=== PATIENT | female | born 1960 | race Caucasian/White ===

== ENCOUNTER 2022-11-14 17:41 | Inpatient (IN) | payer OTHER ==
[~2022-11-14] VITALS: Ht 157.5 cm; Wt 69.3 kg
[2022-11-14] MEDS ORDERED: MIRT-89 PO (18:05)
[2022-11-14] MEDS ORDERED: CLOP75TA60 PO (18:05)
[2022-11-14] MEDS ORDERED: ATOR20TA86 PO (18:05)
[2022-11-14] MEDS ORDERED: HYDR-4808 PO (18:05)
[2022-11-14] MEDS ORDERED: SODIUM CHLORIDE 0.9% 100 ML ONE (18:13)
[2022-11-14] MEDS ORDERED: IOHEXOL 350 MG/ML 100 ML VIAL ONE (18:13)
[2022-11-14 18:19] LABS: BASOPHILS % (AUTO) 0.8 % (0.0-2.0); EOSINOPHILS % (AUTO) 1.2 % (1.0-6.0); HEMATOCRIT 42.5 % (36-46); HEMOGLOBIN 13.9 g/dL (12.0-16.0); LYMPHOCYTES # (AUTO) 2.6 K/uL (1.0-4.8); LYMPHOCYTES % (AUTO) 35.3 % (22.0-44.0); MEAN CORPUSCULAR HGB CONC 32.6 G/dL (31.0-37.0); MEAN CORPUSCULAR VOLUME 89 fL (80-100); MONOCYTES # (AUTO) 0.5 K/uL (0.1-1.0); MONOCYTES % (AUTO) 6.5 % (2.0-9.0); NEUTROPHILS # (AUTO) 4.1 K/uL (1.8-7.7); NEUTROPHILS % (AUTO) 56.2 % (40.0-70.0); PLATELET COUNT (AUTO) 222 K/uL (150-450); RED BLOOD CELL COUNT(AUTO) 4.79 MIL/uL (4.00-5.20); RED CELL DISTRIBUTION WIDTH 13.5 % (11.5-14.5)
[2022-11-14 18:28] LABS: ANION GAP 7 mmol/L (8-16); CARBON DIOXIDE 28 mmol/L (22-29); CHLORIDE 105 mmol/L (98-107); CREATININE 0.57 mg/dL (0.60-1.30); GLOMERULAR FILTR. RATE CALC > 60 mL/min (>60); GLUCOSE,RANDOM 91 mg/dL (70-110); POTASSIUM 3.8 mmol/L (3.5-5.1); SODIUM SERUM 140 mmol/L (136-145); UREA NITROGEN, BLOOD 15 mg/dL (7-18)
[2022-11-14 18:32] LABS: PROTHROMBIN TIME 10.8 SEC (9.4-11.6)
[2022-11-14 18:35] LABS: ALANINE AMINOTRANSFERASE 24 U/L (12-78); ALBUMIN 3.4 g/dL (3.4-5.0); ALKALINE PHOSPHATASE 80 U/L (46-116); ASPARTATE AMINOTRANSFERASE 18 U/L (15-37); BILIRUBIN,TOTAL 0.3 mg/dL (0.1-1.0); TOTAL PROTEIN, SERUM 7.6 g/dL (6.4-8.2)
[2022-11-14 18:37] LABS: B-TYPE NATRIURETIC PEPTIDE 25 pg/mL (0-100)
[2022-11-14] MEDS ORDERED: WATER FOR INJECTION STERILE IV ONE ×2 (18:40)
[2022-11-14] MEDS ORDERED: ALTEPLASE IV ONE ×2 (18:40)
[2022-11-14] MEDS ORDERED: ALTEPLASE PER STROKE PROTOCOL CLINICAL ONE (18:45)
[2022-11-14 19:45] LABS: COVID AG,FIA SOURCE NASOPHARYNGEAL
[2022-11-14] MEDS ORDERED: ACETAMINOPHEN 325 MG TABLET PO PRN (20:30)
[2022-11-14] MEDS ORDERED: HALOPERIDOL LACTATE 5 MG/ML VIAL IVP ONE (20:30)
[2022-11-14] MEDS ORDERED: ONDANSETRON HCL 4 MG/2 ML VIAL IVP PRN (20:30)
[2022-11-14] MEDS: DOCUSATE SODIUM 100 MG CAPSULE PO SCH (20:45)
[2022-11-14 20:52] LABS: CHOL/HDL RATIO 2.3 (3.9-5.7); CHOLESTEROL 134 mg/dL (131-200); HDL CHOLESTEROL 58 mg/dL (40-60); LDL CHOL (CALC.) 51 mg/dL (0-130); TRIGLYCERIDES 123 mg/dL (15-150)
[2022-11-14] MEDS: FAMOTIDINE 20 MG TABLET PO SCH (20:59)
[2022-11-14 21:02] LABS: HEMOGLOBIN A1C 5.8 % (3.8-5.6)
[2022-11-14 23:19] LABS: HEMATOCRIT 41.9 % (36-46); HEMOGLOBIN 13.7 g/dL (12.0-16.0)
[2022-11-15] VITALS (7 sets, daily range): BP systolic 104–134; BP diastolic 62–72
[2022-11-15] MEDS: PROMETHAZINE HCL 25 MG RECTAL SUPPOSITORY PR PRN ×3 (03:02→16:39)
[2022-11-15] MEDS: DOCUSATE SODIUM 100 MG CAPSULE PO SCH ×2 (08:05→20:38)
[2022-11-15] MEDS: FAMOTIDINE 20 MG TABLET PO SCH ×2 (08:06→20:38)
[2022-11-15 09:13] LABS: BASOPHILS % (AUTO) 0.7 % (0.0-2.0); EOSINOPHILS % (AUTO) 1.6 % (1.0-6.0); HEMATOCRIT 41.8 % (36-46); HEMOGLOBIN 13.6 g/dL (12.0-16.0); LYMPHOCYTES # (AUTO) 1.7 K/uL (1.0-4.8); LYMPHOCYTES % (AUTO) 32.3 % (22.0-44.0); MEAN CORPUSCULAR HEMOGLOBIN 28.8 pg (26.0-34.0); MEAN CORPUSCULAR HGB CONC 32.6 G/dL (31.0-37.0); MEAN CORPUSCULAR VOLUME 88 fL (80-100); MONOCYTES # (AUTO) 0.3 K/uL (0.1-1.0); MONOCYTES % (AUTO) 6.1 % (2.0-9.0); NEUTROPHILS # (AUTO) 3.1 K/uL (1.8-7.7); NEUTROPHILS % (AUTO) 59.3 % (40.0-70.0); PLATELET COUNT (AUTO) 182 K/uL (150-450); RED BLOOD CELL COUNT(AUTO) 4.73 MIL/uL (4.00-5.20); RED CELL DISTRIBUTION WIDTH 13.5 % (11.5-14.5)
[2022-11-15 09:22] LABS: ANION GAP 8 mmol/L (8-16); CALCIUM, TOTAL 8.7 mg/dL (8.8-10.5); CARBON DIOXIDE 28 mmol/L (22-29); CHLORIDE 106 mmol/L (98-107); CREATININE 0.53 mg/dL (0.60-1.30); GLOMERULAR FILTR. RATE CALC > 60 mL/min (>60); GLUCOSE,RANDOM 89 mg/dL (70-110); POTASSIUM 3.8 mmol/L (3.5-5.1); SODIUM SERUM 142 mmol/L (136-145); UREA NITROGEN, BLOOD 10 mg/dL (7-18)
[2022-11-15] MEDS: MORPHINE SULFATE 2 MG/ML SYRINGE IVP PRN ×3 (09:58→21:07)
[2022-11-15] MEDS ORDERED: SODIUM CHLORIDE 0.9% 1,000 ML IV ONE (10:00)
[2022-11-15 11:54] LABS: HEMATOCRIT 42.6 % (36-46); HEMOGLOBIN 13.8 g/dL (12.0-16.0)
[2022-11-16] VITALS (8 sets, daily range): BP systolic 100–112; BP diastolic 58–76
[2022-11-16] MEDS: MORPHINE SULFATE 2 MG/ML SYRINGE IVP PRN ×4 (04:31→19:55)
[2022-11-16] MEDS: PROMETHAZINE HCL 25 MG RECTAL SUPPOSITORY PR PRN (07:42)
[2022-11-16] MEDS: FAMOTIDINE 20 MG TABLET PO SCH ×2 (08:16→21:07)
[2022-11-16] MEDS: DOCUSATE SODIUM 100 MG CAPSULE PO SCH ×2 (08:16→21:07)
[2022-11-16] MEDS: HEPARIN SODIUM,PORCINE 5,000 UNITS/ML VIAL SQ SCH ×2 (09:07→15:11)
[2022-11-16] MEDS: ASPIRIN 81 MG CHEWABLE TABLET PO SCH (09:07)
[2022-11-16] MEDS: ATORVASTATIN CALCIUM 40 MG TABLET PO SCH (09:07)
[2022-11-16] MEDS: HydrOXYzine PAMOATE 25 MG CAPSULE PO SCH ×2 (10:42→21:07)
[2022-11-16] MEDS: MAGNESIUM OXIDE 400 MG TABLET PO PRN ×3 (10:42→19:55)
[2022-11-16] MEDS ORDERED: MAGNESIUM SULFATE 2 GM/WATER 50 ML IV PRN (10:45)
[2022-11-16] MEDS ORDERED: MAGNESIUM SULFATE 4 GM/WATER 100 ML IV PRN (10:45)
[2022-11-16] MEDS: PROMETHAZINE HCL 25 MG TABLET PO PRN ×2 (14:46→21:07)
[2022-11-16] MEDS ORDERED: DENTURE ADHESIVE 68 GM CREAM DT PRN (15:00)
[2022-11-16] MEDS: MIRTAZAPINE 15 MG TABLET PO SCH (21:07)
[2022-11-17] VITALS (7 sets, daily range): BP systolic 97–123; BP diastolic 61–81
[2022-11-17] MEDS: HEPARIN SODIUM,PORCINE 5,000 UNITS/ML VIAL SQ SCH ×4 (00:18→23:32)
[2022-11-17] MEDS: MORPHINE SULFATE 2 MG/ML SYRINGE IVP PRN (05:35)
[2022-11-17] MEDS: PROMETHAZINE HCL 25 MG TABLET PO PRN ×3 (05:36→20:44)
[2022-11-17] MEDS: MAGNESIUM OXIDE 400 MG TABLET PO PRN ×3 (06:59→18:28)
[2022-11-17] MEDS: HydrOXYzine PAMOATE 25 MG CAPSULE PO SCH ×2 (08:53→20:42)
[2022-11-17] MEDS: DOCUSATE SODIUM 100 MG CAPSULE PO SCH ×2 (08:53→20:42)
[2022-11-17] MEDS: FAMOTIDINE 20 MG TABLET PO SCH ×2 (08:53→20:42)
[2022-11-17] MEDS: ASPIRIN 81 MG CHEWABLE TABLET PO SCH (08:53)
[2022-11-17] MEDS: ATORVASTATIN CALCIUM 40 MG TABLET PO SCH (08:53)
[2022-11-17] MEDS ORDERED: HYDROCORTISONE 0.5% 30 GM CREAM TP PRN (10:30)
[2022-11-17] MEDS ORDERED: SUMAtriptan SUCCINATE 100 MG TABLET PO PRN (16:45)
[2022-11-17] MEDS: MIRTAZAPINE 15 MG TABLET PO SCH (20:42)
[2022-11-18] MEDS: MAGNESIUM OXIDE 400 MG TABLET PO PRN (01:22)
[2022-11-18 04:50] VITALS: BP 110/71
[2022-11-18 07:42] VITALS: BP 115/73
[2022-11-18] MEDS: CLOPIDOGREL BISULFATE 75 MG TABLET PO SCH (08:54)
[2022-11-18] MEDS: DOCUSATE SODIUM 100 MG CAPSULE PO SCH ×2 (08:54→20:17)
[2022-11-18] MEDS: ASPIRIN 81 MG CHEWABLE TABLET PO SCH (08:55)
[2022-11-18] MEDS: HEPARIN SODIUM,PORCINE 5,000 UNITS/ML VIAL SQ SCH ×3 (08:55→23:17)
[2022-11-18] MEDS: HydrOXYzine PAMOATE 25 MG CAPSULE PO SCH ×2 (08:55→20:15)
[2022-11-18] MEDS: FAMOTIDINE 20 MG TABLET PO SCH ×2 (08:56→20:15)
[2022-11-18] MEDS: ATORVASTATIN CALCIUM 40 MG TABLET PO SCH (08:56)
[2022-11-18] MEDS: PROMETHAZINE HCL 25 MG TABLET PO PRN (09:56)
[2022-11-18 11:13] VITALS: BP 98/56
[2022-11-18 15:33] VITALS: BP 113/73
[2022-11-18] MEDS: ALPRAZolam 0.5 MG TABLET PO SCH (20:15)
[2022-11-18] MEDS: MIRTAZAPINE 15 MG TABLET PO SCH (20:16)
[2022-11-18 20:51] VITALS: BP 118/77
[2022-11-19 03:01] VITALS: BP 96/64
[2022-11-19 04:05] VITALS: BP 96/64
[2022-11-19 07:44] VITALS: BP 98/66
[2022-11-19] MEDS: FAMOTIDINE 20 MG TABLET PO SCH (09:15)
[2022-11-19] MEDS: HEPARIN SODIUM,PORCINE 5,000 UNITS/ML VIAL SQ SCH ×2 (09:16→15:47)
[2022-11-19] MEDS: ASPIRIN 81 MG CHEWABLE TABLET PO SCH (09:16)
[2022-11-19] MEDS: DOCUSATE SODIUM 100 MG CAPSULE PO SCH (09:16)
[2022-11-19] MEDS: HydrOXYzine PAMOATE 25 MG CAPSULE PO SCH (09:16)
[2022-11-19] MEDS: CLOPIDOGREL BISULFATE 75 MG TABLET PO SCH (09:16)
[2022-11-19] MEDS: ALPRAZolam 0.5 MG TABLET PO SCH (09:16)
[2022-11-19] MEDS: ATORVASTATIN CALCIUM 40 MG TABLET PO SCH (09:17)
[2022-11-19 11:16] VITALS: BP 103/66
[2022-11-19] MEDS: PROMETHAZINE HCL 25 MG TABLET PO PRN (11:33)
[2022-11-19 11:51] VITALS: BP 114/70
[2022-11-19 15:00] VITALS: BP 146/75
[2022-11-19] MEDS ORDERED: TraMADol HCL 50 MG TABLET PO PRN (15:00)
== END 2022-11-19 19:00 | DRG 62 ==
LOC: EMS 17:50 → ICU 11-15 00:34 → 5S 11-16 10:01
PROVIDERS: ADMIT Internal Medicine; ATTEND Internal Medicine
DX: I63.9 Cerebral infarction, unspecified (principal); G81.94 Hemiplegia, unspecified affecting left nondominant side; E78.5 Hyperlipidemia, unspecified; E66.9 Obesity, unspecified; I10 Essential (primary) hypertension; Z20.822 Contact with and (suspected) exposure to COVID-19; E78.00 Pure hypercholesterolemia, unspecified; F41.1 Generalized anxiety disorder; H53.40 Unspecified visual field defects; R29.713 NIHSS score 13; R29.810 Facial weakness; Z79.02 Long term (current) use of antithrombotics/antiplatelets; Z68.27 Body mass index [BMI] 27.0-27.9, adult; Z88.8 Allergy status to other drugs, medicaments and biological substances; Z79.82 Long term (current) use of aspirin; Z86.718 Personal history of other venous thrombosis and embolism; Z88.6 Allergy status to analgesic agent
CPT/HCPCS: 70496; 70498; 71045; 80048; 80053; 80061; 82040; 82948; 83036; 83735; 83880; 84484; 85014; 85018; 85025; 85610; 85730; 86850; 86900; 86901; 87081; 92526; 92610; 93005; 93306; 97112; 97162; 97166; 97530; 97535; 99291; G0378; G0480; J1630; J1644; J2270; J2997; J7030; J7050; Q9967; 36415-L1; 36415-TC; 70450; 70450-TC

== ENCOUNTER 2023-04-07 23:23 | Inpatient (IN) | payer OTHER ==
[~2023-04-07] VITALS: Ht 160 cm; Wt 70.2 kg
[~2023-04-07 23:23] MED LIST: ATOR20TA PO; CLOP75TA60 PO; HYDR-4808 PO; MIRT-89 PO
[2023-04-08 00:34] LABS: BASOPHILS % (AUTO) 0.9 % (0.0-2.0); HEMOGLOBIN 14.9 g/dL (12.0-16.0); LYMPHOCYTES # (AUTO) 2.3 K/uL (1.0-4.8); LYMPHOCYTES % (AUTO) 29.9 % (22.0-44.0); MEAN CORPUSCULAR HGB CONC 33.9 G/dL (31.0-37.0); MEAN CORPUSCULAR VOLUME 85 fL (80-100); MONOCYTES # (AUTO) 0.6 K/uL (0.1-1.0); MONOCYTES % (AUTO) 8.2 % (2.0-9.0); NEUTROPHILS # (AUTO) 4.7 K/uL (1.8-7.7); PLATELET COUNT (AUTO) 255 K/uL (150-450); RED BLOOD CELL COUNT(AUTO) 5.16 MIL/uL (4.00-5.20); RED CELL DISTRIBUTION WIDTH 14.9 % (11.5-14.5)
[2023-04-08 00:37] LABS: ANION GAP 8 mmol/L (8-16); CALCIUM, TOTAL 9.5 mg/dL (8.8-10.5); CARBON DIOXIDE 27 mmol/L (22-29); CHLORIDE 102 mmol/L (98-107); CREATININE 0.67 mg/dL (0.60-1.30); GLOMERULAR FILTR. RATE CALC > 60 mL/min (>60); GLUCOSE,RANDOM 95 mg/dL (70-110); POTASSIUM 3.8 mmol/L (3.5-5.1); SODIUM SERUM 137 mmol/L (136-145)
[2023-04-08 00:43] LABS: ALANINE AMINOTRANSFERASE 17 U/L (12-78); ALBUMIN 3.7 g/dL (3.4-5.0); ALKALINE PHOSPHATASE 76 U/L (46-116); ASPARTATE AMINOTRANSFERASE 13 U/L (15-37); BILIRUBIN,TOTAL 0.5 mg/dL (0.1-1.0); LIPASE 122 U/L (73-393); TOTAL PROTEIN, SERUM 7.8 g/dL (6.4-8.2)
[2023-04-08 00:45] LABS: LACTIC ACID 1.2 mmol/L (0.4-2.0)
[2023-04-08] MEDS ORDERED: LORazepam 2 MG/ML VIAL IM ONE (01:00)
[2023-04-08] MEDS ORDERED: ACETAMINOPHEN 325 MG TABLET PO PRN (01:00)
[2023-04-08 01:52] LABS: COVID AG,FIA SOURCE NASOPHARYNGEAL
[2023-04-08] MEDS ORDERED: DiphenhydrAMINE HCL 50 MG/ML VIAL IM ONE (02:45)
[2023-04-08] MEDS ORDERED: CLOBETASOL 0.05% 15 GM CREAM TP ONE (02:45)
[2023-04-08 03:28] VITALS: BP 117/74
[2023-04-08 08:00] VITALS: BP 110/65
[2023-04-08] MEDS: HEPARIN SODIUM,PORCINE 5,000 UNITS/ML VIAL SQ SCH ×2 (08:00→16:00)
[2023-04-08] MEDS: CLOPIDOGREL BISULFATE 75 MG TABLET PO SCH (08:36)
[2023-04-08] MEDS: ASPIRIN 81 MG CHEWABLE TABLET PO SCH (08:36)
[2023-04-08] MEDS: ATORVASTATIN CALCIUM 20 MG TABLET PO SCH (08:36)
[2023-04-08] MEDS: HydrOXYzine PAMOATE 25 MG CAPSULE PO SCH ×2 (10:19→22:19)
[2023-04-08 12:30] VITALS: BP 114/66
[2023-04-08 16:03] VITALS: BP 118/68
[2023-04-08 19:57] VITALS: BP 110/69
[2023-04-08] MEDS: MIRTAZAPINE 15 MG TABLET PO SCH (22:19)
[2023-04-09 04:38] VITALS: BP 108/67
[2023-04-09] MEDS ORDERED: CLOBETASOL 0.05% 60 GM CREAM TP ONE (05:45)
[2023-04-09] MEDS ORDERED: CLOBETASOL 0.05% 15 GM CREAM TP ONE (05:45)
[2023-04-09 08:00] VITALS: BP 98/59
[2023-04-09] MEDS: HEPARIN SODIUM,PORCINE 5,000 UNITS/ML VIAL SQ SCH ×3 (08:00→16:00)
[2023-04-09] MEDS: ATORVASTATIN CALCIUM 20 MG TABLET PO SCH (09:22)
[2023-04-09] MEDS: HydrOXYzine PAMOATE 25 MG CAPSULE PO SCH ×2 (09:23→21:00)
[2023-04-09] MEDS: ASPIRIN 81 MG CHEWABLE TABLET PO SCH (09:23)
[2023-04-09] MEDS: CLOPIDOGREL BISULFATE 75 MG TABLET PO SCH (09:23)
[2023-04-09 15:06] VITALS: BP 114/69
[2023-04-09] MEDS ORDERED: ACETAMINOPHEN 1000 MG/ISO-OSM 100 ML IV PRN (18:00)
[2023-04-09] MEDS: DEXTROSE 5%-0.45% SODIUM CHL 1,000 ML IV SCH (18:12)
[2023-04-09] MEDS: LORazepam 2 MG/ML VIAL IVP PRN (18:12)
[2023-04-09 19:58] VITALS: BP 110/67
[2023-04-09] MEDS: MIRTAZAPINE 15 MG TABLET PO SCH (21:00)
[2023-04-10] MEDS: HEPARIN SODIUM,PORCINE 5,000 UNITS/ML VIAL SQ SCH ×5 (00:01→23:19)
[2023-04-10] MEDS: LORazepam 2 MG/ML VIAL IVP PRN ×3 (00:04→14:03)
[2023-04-10 03:52] VITALS: BP 109/56
[2023-04-10] MEDS: DEXTROSE 5%-0.45% SODIUM CHL 1,000 ML IV SCH (06:06)
[2023-04-10 08:02] VITALS: BP 100/58
[2023-04-10] MEDS: ASPIRIN 81 MG CHEWABLE TABLET PO SCH (08:55)
[2023-04-10] MEDS: CLOPIDOGREL BISULFATE 75 MG TABLET PO SCH (08:56)
[2023-04-10] MEDS: ATORVASTATIN CALCIUM 20 MG TABLET PO SCH (08:56)
[2023-04-10] MEDS: HydrOXYzine PAMOATE 25 MG CAPSULE PO SCH (08:56)
[2023-04-10] MEDS: DENTURE ADHESIVE 68 GM CREAM DT PRN (16:13)
[2023-04-10 16:39] VITALS: BP 102/69
[2023-04-10 19:55] VITALS: BP 98/60
[2023-04-10] MEDS: MIRTAZAPINE 15 MG TABLET PO SCH (20:06)
[2023-04-10] MEDS: HydrOXYzine PAMOATE 50 MG CAPSULE PO PRN (20:07)
[2023-04-11 04:57] VITALS: BP 104/65
[2023-04-11] MEDS: CLOPIDOGREL BISULFATE 75 MG TABLET PO SCH (08:08)
[2023-04-11] MEDS: ATORVASTATIN CALCIUM 20 MG TABLET PO SCH (08:08)
[2023-04-11] MEDS: HEPARIN SODIUM,PORCINE 5,000 UNITS/ML VIAL SQ SCH ×3 (08:08→23:13)
[2023-04-11] MEDS: ASPIRIN 81 MG CHEWABLE TABLET PO SCH (08:08)
[2023-04-11] MEDS: HydrOXYzine PAMOATE 50 MG CAPSULE PO PRN ×3 (08:19→21:26)
[2023-04-11 08:50] VITALS: BP 95/56
[2023-04-11] MEDS: DiphenhydrAMINE HCL 25 MG CAPSULE PO PRN ×2 (13:02→18:51)
[2023-04-11 13:43] LABS: APPEARANCE,URINE HAZY (CLEAR); BILIRUBIN,URINE NEGATIVE (NEGATIVE); GLUCOSE, URINE (UA) NEGATIVE (NEGATIVE); KETONES,URINE NEGATIVE (NEGATIVE); LEUKOCYTE ESTERASE ,URINE SMALL (NEGATIVE); NITRATE,URINE NEGATIVE (NEGATIVE); OCCULT BLOOD,URINE NEGATIVE (NEGATIVE); PH,URINE 6.5 (5.0-8.0); PROTEIN,URINE NEGATIVE (NEGATIVE); SPECIFIC GRAVITIY, URINE 1.012 (1.003-1.030); UROBILINOGEN,URINE <=1.0 mg/dL (<=1.0)
[2023-04-11 14:12] LABS: BACTERIA,URINE Moderate /HPF (None Seen); RBC,URINE None Seen /HPF (0-2); SQUAMOUS EPITHELIAL CELL,UR Few /LPF (None Seen)
[2023-04-11] MEDS: CLOTRIMAZOLE 1% 15 GM CREAM TP SCH (15:14)
[2023-04-11 16:08] VITALS: BP 126/73
[2023-04-11] MEDS: CEPHALEXIN MONOHYDRATE 500 MG CAPSULE PO SCH ×2 (16:08→20:07)
[2023-04-11] MEDS: DENTURE ADHESIVE 68 GM CREAM DT PRN (18:51)
[2023-04-11 20:04] VITALS: BP 143/78
[2023-04-11] MEDS: MIRTAZAPINE 15 MG TABLET PO SCH (20:07)
[2023-04-12 05:33] VITALS: BP 121/78
[2023-04-12 07:35] VITALS: BP 114/75
[2023-04-12] MEDS: CEPHALEXIN MONOHYDRATE 500 MG CAPSULE PO SCH ×2 (07:53→13:10)
[2023-04-12] MEDS: CLOPIDOGREL BISULFATE 75 MG TABLET PO SCH (07:54)
[2023-04-12] MEDS: HEPARIN SODIUM,PORCINE 5,000 UNITS/ML VIAL SQ SCH ×3 (07:54→23:32)
[2023-04-12] MEDS: ATORVASTATIN CALCIUM 20 MG TABLET PO SCH (07:55)
[2023-04-12] MEDS: ASPIRIN 81 MG CHEWABLE TABLET PO SCH (07:56)
[2023-04-12] MEDS: DENTURE ADHESIVE 68 GM CREAM DT PRN (08:00)
[2023-04-12] MEDS ORDERED: ZOLPIDEM TARTRATE 10 MG TABLET PO PRN (13:00)
[2023-04-12] MEDS: CLOTRIMAZOLE 1% 15 GM CREAM TP SCH (13:11)
[2023-04-12] MEDS: HydrOXYzine PAMOATE 50 MG CAPSULE PO PRN (13:40)
[2023-04-12] MEDS ORDERED: CefTRIAXone 1 GM/DEXTROSE 50 ML IV SCH (14:00)
[2023-04-12] MEDS: PROMETHAZINE HCL 25 MG TABLET PO PRN ×2 (16:50→21:17)
[2023-04-12 16:53] VITALS: BP 104/53
[2023-04-12] MEDS ORDERED: LORazepam 2 MG/ML VIAL IVP ONE (18:00)
[2023-04-12 20:03] VITALS: BP 108/71
[2023-04-12] MEDS: MIRTAZAPINE 15 MG TABLET PO SCH (21:17)
[2023-04-13] MEDS: PROMETHAZINE HCL 25 MG TABLET PO PRN ×4 (03:21→21:20)
[2023-04-13 05:19] VITALS: BP 105/56
[2023-04-13 07:26] VITALS: BP 110/73
[2023-04-13] MEDS: HEPARIN SODIUM,PORCINE 5,000 UNITS/ML VIAL SQ SCH ×3 (08:00→23:31)
[2023-04-13] MEDS: CLOPIDOGREL BISULFATE 75 MG TABLET PO SCH (08:20)
[2023-04-13] MEDS: ASPIRIN 81 MG CHEWABLE TABLET PO SCH (08:20)
[2023-04-13] MEDS: ATORVASTATIN CALCIUM 20 MG TABLET PO SCH (08:20)
[2023-04-13] MEDS: CLOTRIMAZOLE 1% 15 GM CREAM TP SCH (08:21)
[2023-04-13] MEDS: HydrOXYzine PAMOATE 50 MG CAPSULE PO PRN ×3 (09:33→23:27)
[2023-04-13 15:02] VITALS: BP 124/76
[2023-04-13] MEDS: DiphenhydrAMINE HCL 25 MG CAPSULE PO PRN (18:42)
[2023-04-13 19:57] VITALS: BP 108/73
[2023-04-13] MEDS: MIRTAZAPINE 15 MG TABLET PO SCH (21:01)
[2023-04-14 07:00] VITALS: BP 118/62
[2023-04-14] MEDS: HEPARIN SODIUM,PORCINE 5,000 UNITS/ML VIAL SQ SCH (07:50)
[2023-04-14] MEDS: CLOTRIMAZOLE 1% 15 GM CREAM TP SCH (07:51)
[2023-04-14] MEDS: PROMETHAZINE HCL 25 MG TABLET PO PRN (07:52)
[2023-04-14] MEDS: CLOPIDOGREL BISULFATE 75 MG TABLET PO SCH (07:52)
[2023-04-14] MEDS: ATORVASTATIN CALCIUM 20 MG TABLET PO SCH (07:52)
[2023-04-14] MEDS: ASPIRIN 81 MG CHEWABLE TABLET PO SCH (07:52)
[2023-04-14] MEDS: DiphenhydrAMINE HCL 25 MG CAPSULE PO PRN (09:55)
[2023-04-14] MEDS: HydrOXYzine PAMOATE 50 MG CAPSULE PO PRN (09:55)
[2023-04-15] MEDS ORDERED: FLUoxetine HCL 10 MG CAPSULE PO SCH (09:00)
== END 2023-04-14 14:45 | DRG 57 ==
LOC: EMS 23:24 → 6S 04-08 02:00
PROVIDERS: ADMIT Internal Medicine; ATTEND Internal Medicine
DX: G81.94 Hemiplegia, unspecified affecting left nondominant side (principal); Z20.822 Contact with and (suspected) exposure to COVID-19; F41.9 Anxiety disorder, unspecified; R47.1 Dysarthria and anarthria; E78.00 Pure hypercholesterolemia, unspecified; F32.A Depression, unspecified; H53.8 Other visual disturbances; R53.81 Other malaise; I10 Essential (primary) hypertension; L30.9 Dermatitis, unspecified; Z86.73 Personal history of transient ischemic attack (TIA), and cerebral infarction without residual deficits; Z86.718 Personal history of other venous thrombosis and embolism; Z79.02 Long term (current) use of antithrombotics/antiplatelets; Z79.82 Long term (current) use of aspirin; Z86.711 Personal history of pulmonary embolism; Z98.84 Bariatric surgery status; Z88.8 Allergy status to other drugs, medicaments and biological substances; Z79.899 Other long term (current) drug therapy
CPT/HCPCS: 70450; 71045; 80053; 81001; 83605; 83690; 84484; 85025; 87086; 87186; 92610; 93005; 93306; 97112; 97116; 97163; 97166; 97530; 97535; 99291; J0696; J1200; J1644; J2060; 36415-L1; 36415-TC

== ENCOUNTER 2023-06-20 16:09 | Inpatient (IN) | payer OTHER ==
[~2023-06-20] VITALS: Ht 160 cm; Wt 90.9 kg
[2023-06-20 20:32] LABS: BASOPHILS % (AUTO) 0.9 % (0.0-2.0); EOSINOPHILS % (AUTO) 2.4 % (1.0-6.0); HEMATOCRIT 35.5 % (36-46); LYMPHOCYTES # (AUTO) 2.3 K/uL (1.0-4.8); LYMPHOCYTES % (AUTO) 34.2 % (22.0-44.0); MEAN CORPUSCULAR HEMOGLOBIN 23.9 pg (26.0-34.0); MEAN CORPUSCULAR HGB CONC 31.1 G/dL (31.0-37.0); MEAN CORPUSCULAR VOLUME 77 fL (80-100); MONOCYTES # (AUTO) 0.5 K/uL (0.1-1.0); MONOCYTES % (AUTO) 7.5 % (2.0-9.0); NEUTROPHILS # (AUTO) 3.7 K/uL (1.8-7.7); PLATELET COUNT (AUTO) 267 K/uL (150-450); RED BLOOD CELL COUNT(AUTO) 4.62 MIL/uL (4.00-5.20); RED CELL DISTRIBUTION WIDTH 17.6 % (11.5-14.5)
[2023-06-20 20:36] LABS: PROTHROMBIN TIME 10.2 SEC (9.4-11.6)
[2023-06-20 20:39] LABS: ANION GAP 11 mmol/L (8-16); CALCIUM, TOTAL 8.7 mg/dL (8.8-10.5); CARBON DIOXIDE 25 mmol/L (22-29); CHLORIDE 101 mmol/L (98-107); CREATININE 0.61 mg/dL (0.60-1.30); GLOMERULAR FILTR. RATE CALC > 60 mL/min (>60); GLUCOSE,RANDOM 109 mg/dL (70-110); POTASSIUM 4.3 mmol/L (3.5-5.1); SODIUM SERUM 137 mmol/L (136-145)
[2023-06-20 20:47] LABS: LACTIC ACID 1.2 mmol/L (0.4-2.0)
[2023-06-20 20:53] LABS: ALANINE AMINOTRANSFERASE 21 U/L (12-78); ALBUMIN 3.1 g/dL (3.4-5.0); ALKALINE PHOSPHATASE 81 U/L (46-116); ASPARTATE AMINOTRANSFERASE 17 U/L (15-37); BILIRUBIN,TOTAL 0.2 mg/dL (0.1-1.0); LIPASE 46 U/L (16-77); TOTAL PROTEIN, SERUM 7.2 g/dL (6.4-8.2)
[2023-06-20] MEDS ORDERED: BISACODYL 10 MG RECTAL RECTAL SUPPOSITORY PR PRN (22:30)
[2023-06-20] MEDS ORDERED: ACETAMINOPHEN 325 MG TABLET PO PRN (22:30)
[2023-06-20] MEDS ORDERED: ZOLPIDEM TARTRATE 5 MG TABLET PO PRN (22:30)
[2023-06-20] MEDS ORDERED: MAGNESIUM HYDROXIDE SUSPENSION 30 ML UDCUP PO PRN (22:30)
[2023-06-20] MEDS ORDERED: HYDROmorphone HCL 2 MG/ML SYRINGE IVP ONE (23:00)
[2023-06-20] MEDS ORDERED: DiphenhydrAMINE HCL 50 MG/ML VIAL IVP ONE (23:30)
[2023-06-20] MEDS: HEPARIN SODIUM,PORCINE 5,000 UNITS/ML VIAL SQ SCH (23:36)
[2023-06-21] MEDS ORDERED: MICONAZOLE NITRATE 2% 142 GM CREAM [BAZA] TP ONE (01:15)
[2023-06-21] MEDS ORDERED: LORazepam 2 MG TABLET PO ONE (01:15)
[2023-06-21] MEDS ORDERED: MIRTAZAPINE 15 MG TABLET PO ONE (01:15)
[2023-06-21] MEDS ORDERED: MICONAZOLE NITRATE 2% 45 GM VAGINAL CREAM VG ONE (01:30)
[2023-06-21 02:27] LABS: APPEARANCE,URINE CLEAR (CLEAR); BILIRUBIN,URINE NEGATIVE (NEGATIVE); GLUCOSE, URINE (UA) NEGATIVE (NEGATIVE); KETONES,URINE NEGATIVE (NEGATIVE); LEUKOCYTE ESTERASE ,URINE TRACE (NEGATIVE); NITRATE,URINE NEGATIVE (NEGATIVE); OCCULT BLOOD,URINE NEGATIVE (NEGATIVE); PROTEIN,URINE NEGATIVE (NEGATIVE); SPECIFIC GRAVITIY, URINE 1.018 (1.003-1.030); UROBILINOGEN,URINE <=1.0 mg/dL (<=1.0)
[2023-06-21 02:33] LABS: AMORPHOUS SEDIMENT,UR Few /LPF (None Seen); BACTERIA,URINE None Seen /HPF (None Seen); RBC,URINE 0-2 /HPF (0-2); SQUAMOUS EPITHELIAL CELL,UR Few /LPF (None Seen); WBC,URINE 0-2 /HPF (0-5)
[2023-06-21] MEDS: HYDROCODONE/ACETAMINOPHEN 5-325 MG TABLET PO PRN ×2 (03:06→12:04)
[2023-06-21 05:28] VITALS: BP 105/55; PULSE 69; RESP 20; TEMP 97.7
[2023-06-21] MEDS: MORPHINE SULFATE 2 MG/ML SYRINGE IVP PRN ×3 (05:52→21:01)
[2023-06-21 08:00] VITALS: BP 97/56; PULSE 71; RESP 20; TEMP 97.5
[2023-06-21] MEDS: PANTOPRAZOLE SODIUM 40 MG DR TABLET PO SCH (08:36)
[2023-06-21] MEDS: HEPARIN SODIUM,PORCINE 5,000 UNITS/ML VIAL SQ SCH ×3 (08:36→23:45)
[2023-06-21] MEDS: DOCUSATE SODIUM 100 MG CAPSULE PO SCH ×2 (08:36→20:59)
[2023-06-21 19:26] VITALS: BP 116/50; PULSE 80; RESP 18; TEMP 98.6
[2023-06-21] MEDS: MIRTAZAPINE 15 MG TABLET PO SCH (20:59)
[2023-06-21] MEDS: HydrOXYzine PAMOATE 25 MG CAPSULE PO SCH (20:59)
[2023-06-22] MEDS: MORPHINE SULFATE 2 MG/ML SYRINGE IVP PRN ×5 (01:54→23:58)
[2023-06-22] MEDS: HYDROCODONE/ACETAMINOPHEN 5-325 MG TABLET PO PRN (04:26)
[2023-06-22 05:22] VITALS: BP 95/51; PULSE 74; RESP 20; TEMP 98
[2023-06-22 07:18] VITALS: BP 100/50; PULSE 63; RESP 18; TEMP 98.4
[2023-06-22] MEDS: DOCUSATE SODIUM 100 MG CAPSULE PO SCH ×2 (09:00→20:01)
[2023-06-22 09:04] VITALS: BP 105/57; PULSE 69; RESP 20
[2023-06-22] MEDS: PANTOPRAZOLE SODIUM 40 MG DR TABLET PO SCH (09:14)
[2023-06-22] MEDS: HEPARIN SODIUM,PORCINE 5,000 UNITS/ML VIAL SQ SCH ×3 (09:14→23:58)
[2023-06-22] MEDS: ATORVASTATIN CALCIUM 20 MG TABLET PO SCH (09:14)
[2023-06-22] MEDS: HydrOXYzine PAMOATE 25 MG CAPSULE PO SCH ×2 (09:14→20:01)
[2023-06-22] MEDS ORDERED: DENTURE ADHESIVE 68 GM CREAM DT PRN (13:15)
[2023-06-22 15:52] VITALS: BP 106/58; PULSE 80; RESP 18; TEMP 98.9
[2023-06-22] MEDS: MIRTAZAPINE 15 MG TABLET PO SCH (20:01)
[2023-06-22 20:24] VITALS: BP 119/61; PULSE 86; RESP 20; TEMP 98.1
[2023-06-23] MEDS: MORPHINE SULFATE 2 MG/ML SYRINGE IVP PRN ×5 (04:11→21:30)
[2023-06-23 04:24] VITALS: BP 110/58; PULSE 68; RESP 20; TEMP 98.3
[2023-06-23 06:48] LABS: BASOPHILS % (AUTO) 0.9 % (0.0-2.0); EOSINOPHILS % (AUTO) 4.3 % (1.0-6.0); HEMATOCRIT 34.6 % (36-46); HEMOGLOBIN 11.1 g/dL (12.0-16.0); LYMPHOCYTES # (AUTO) 2.3 K/uL (1.0-4.8); LYMPHOCYTES % (AUTO) 35.9 % (22.0-44.0); MEAN CORPUSCULAR HEMOGLOBIN 24.4 pg (26.0-34.0); MEAN CORPUSCULAR HGB CONC 32.2 G/dL (31.0-37.0); MEAN CORPUSCULAR VOLUME 76 fL (80-100); MONOCYTES # (AUTO) 0.5 K/uL (0.1-1.0); MONOCYTES % (AUTO) 8.2 % (2.0-9.0); NEUTROPHILS # (AUTO) 3.2 K/uL (1.8-7.7); NEUTROPHILS % (AUTO) 50.7 % (40.0-70.0); PLATELET COUNT (AUTO) 256 K/uL (150-450); RED BLOOD CELL COUNT(AUTO) 4.56 MIL/uL (4.00-5.20); RED CELL DISTRIBUTION WIDTH 17.9 % (11.5-14.5)
[2023-06-23 07:04] LABS: ANION GAP 7 mmol/L (8-16); CARBON DIOXIDE 27 mmol/L (22-29); CHLORIDE 100 mmol/L (98-107); GLOMERULAR FILTR. RATE CALC > 60 mL/min (>60); GLUCOSE,RANDOM 99 mg/dL (70-110); POTASSIUM 4.2 mmol/L (3.5-5.1); SODIUM SERUM 134 mmol/L (136-145)
[2023-06-23 08:00] VITALS: BP 103/64; PULSE 73; RESP 18; TEMP 98.4
[2023-06-23] MEDS: HydrOXYzine PAMOATE 25 MG CAPSULE PO SCH ×2 (08:30→20:00)
[2023-06-23] MEDS: DOCUSATE SODIUM 100 MG CAPSULE PO SCH ×2 (08:31→20:00)
[2023-06-23] MEDS: HEPARIN SODIUM,PORCINE 5,000 UNITS/ML VIAL SQ SCH ×3 (08:31→23:47)
[2023-06-23] MEDS: ATORVASTATIN CALCIUM 20 MG TABLET PO SCH (08:31)
[2023-06-23] MEDS: PANTOPRAZOLE SODIUM 40 MG DR TABLET PO SCH (08:31)
[2023-06-23] MEDS: HYDROCORTISONE 1% 30 GM OINTMENT TP PRN (10:43)
[2023-06-23 13:09] VITALS: BP 107/61; PULSE 80; RESP 18; TEMP 98.8
[2023-06-23 19:10] VITALS: BP 120/67; PULSE 77; RESP 18; TEMP 98.6
[2023-06-23] MEDS: MIRTAZAPINE 15 MG TABLET PO SCH (20:00)
[2023-06-23 20:15] VITALS: BP 114/72; PULSE 77; RESP 18; TEMP 99
[2023-06-24] MEDS: MORPHINE SULFATE 2 MG/ML SYRINGE IVP PRN ×5 (01:56→21:32)
[2023-06-24 04:51] VITALS: BP 108/59; PULSE 68; RESP 18; TEMP 98
[2023-06-24 07:38] LABS: EOSINOPHILS % (AUTO) 3.6 % (1.0-6.0); HEMATOCRIT 34.7 % (36-46); HEMOGLOBIN 11.1 g/dL (12.0-16.0); LYMPHOCYTES # (AUTO) 2.1 K/uL (1.0-4.8); LYMPHOCYTES % (AUTO) 34.8 % (22.0-44.0); MEAN CORPUSCULAR HEMOGLOBIN 24.4 pg (26.0-34.0); MEAN CORPUSCULAR HGB CONC 32.1 G/dL (31.0-37.0); MEAN CORPUSCULAR VOLUME 76 fL (80-100); MONOCYTES # (AUTO) 0.5 K/uL (0.1-1.0); MONOCYTES % (AUTO) 8.8 % (2.0-9.0); NEUTROPHILS # (AUTO) 3.1 K/uL (1.8-7.7); NEUTROPHILS % (AUTO) 51.8 % (40.0-70.0); PLATELET COUNT (AUTO) 251 K/uL (150-450); RED BLOOD CELL COUNT(AUTO) 4.58 MIL/uL (4.00-5.20); RED CELL DISTRIBUTION WIDTH 17.7 % (11.5-14.5)
[2023-06-24 07:50] VITALS: BP 106/61; PULSE 68; RESP 20; TEMP 98.9
[2023-06-24 07:53] LABS: ANION GAP 12 mmol/L (8-16); CARBON DIOXIDE 25 mmol/L (22-29); CHLORIDE 100 mmol/L (98-107); CREATININE 0.62 mg/dL (0.60-1.30); GLOMERULAR FILTR. RATE CALC > 60 mL/min (>60); GLUCOSE,RANDOM 117 mg/dL (70-110); SODIUM SERUM 137 mmol/L (136-145)
[2023-06-24] MEDS: ATORVASTATIN CALCIUM 20 MG TABLET PO SCH (08:09)
[2023-06-24] MEDS: DOCUSATE SODIUM 100 MG CAPSULE PO SCH ×2 (08:10→21:06)
[2023-06-24] MEDS: HydrOXYzine PAMOATE 25 MG CAPSULE PO SCH ×2 (08:10→21:07)
[2023-06-24] MEDS: PANTOPRAZOLE SODIUM 40 MG DR TABLET PO SCH (08:10)
[2023-06-24] MEDS: HEPARIN SODIUM,PORCINE 5,000 UNITS/ML VIAL SQ SCH (08:10)
[2023-06-24] MEDS: DiphenhydrAMINE HCL 25 MG CAPSULE PO PRN (11:51)
[2023-06-24] MEDS: PredniSONE 20 MG TABLET PO SCH (11:51)
[2023-06-24] MEDS: RIVAROXABAN 10 MG TABLET PO SCH (17:34)
[2023-06-24 18:43] LABS: APPEARANCE,URINE CLEAR (CLEAR); BILIRUBIN,URINE NEGATIVE (NEGATIVE); GLUCOSE, URINE (UA) NEGATIVE (NEGATIVE); KETONES,URINE NEGATIVE (NEGATIVE); LEUKOCYTE ESTERASE ,URINE NEGATIVE (NEGATIVE); NITRATE,URINE NEGATIVE (NEGATIVE); OCCULT BLOOD,URINE NEGATIVE (NEGATIVE); PH,URINE 6.5 (5.0-8.0); PROTEIN,URINE NEGATIVE (NEGATIVE); SPECIFIC GRAVITIY, URINE 1.022 (1.003-1.030); UROBILINOGEN,URINE <=1.0 mg/dL (<=1.0)
[2023-06-24 18:56] LABS: BACTERIA,URINE None Seen /HPF (None Seen); RBC,URINE None Seen /HPF (0-2); WBC,URINE 0-2 /HPF (0-5)
[2023-06-24 19:43] VITALS: BP 118/64; PULSE 92; RESP 20; TEMP 98.7
[2023-06-24] MEDS: MIRTAZAPINE 15 MG TABLET PO SCH (21:06)
[2023-06-25] MEDS: MORPHINE SULFATE 2 MG/ML SYRINGE IVP PRN ×2 (01:36→05:49)
[2023-06-25 05:27] VITALS: BP 109/63; PULSE 69; RESP 18; TEMP 98.9
[2023-06-25] MEDS: HYDROCORTISONE 1% 30 GM OINTMENT TP PRN ×2 (05:52→09:21)
[2023-06-25 07:53] LABS: BASOPHILS % (AUTO) 0.5 % (0.0-2.0); EOSINOPHILS % (AUTO) 0.3 % (1.0-6.0); HEMATOCRIT 34.9 % (36-46); LYMPHOCYTES # (AUTO) 2.4 K/uL (1.0-4.8); LYMPHOCYTES % (AUTO) 21.3 % (22.0-44.0); MEAN CORPUSCULAR HEMOGLOBIN 23.9 pg (26.0-34.0); MEAN CORPUSCULAR HGB CONC 31.5 G/dL (31.0-37.0); MEAN CORPUSCULAR VOLUME 76 fL (80-100); MONOCYTES # (AUTO) 0.8 K/uL (0.1-1.0); MONOCYTES % (AUTO) 7.2 % (2.0-9.0); NEUTROPHILS # (AUTO) 7.8 K/uL (1.8-7.7); NEUTROPHILS % (AUTO) 70.7 % (40.0-70.0); PLATELET COUNT (AUTO) 255 K/uL (150-450); RED CELL DISTRIBUTION WIDTH 17.9 % (11.5-14.5)
[2023-06-25 08:04] LABS: ANION GAP 9 mmol/L (8-16); CALCIUM, TOTAL 8.7 mg/dL (8.8-10.5); CARBON DIOXIDE 26 mmol/L (22-29); CHLORIDE 104 mmol/L (98-107); CREATININE 0.57 mg/dL (0.60-1.30); GLOMERULAR FILTR. RATE CALC > 60 mL/min (>60); GLUCOSE,RANDOM 100 mg/dL (70-110); POTASSIUM 3.9 mmol/L (3.5-5.1); SODIUM SERUM 139 mmol/L (136-145)
[2023-06-25 08:43] VITALS: BP 99/54; PULSE 68; RESP 18; TEMP 98
[2023-06-25] MEDS: PANTOPRAZOLE SODIUM 40 MG DR TABLET PO SCH (09:18)
[2023-06-25] MEDS: DOCUSATE SODIUM 100 MG CAPSULE PO SCH (09:18)
[2023-06-25] MEDS: ATORVASTATIN CALCIUM 20 MG TABLET PO SCH (09:19)
[2023-06-25] MEDS: PredniSONE 20 MG TABLET PO SCH (09:19)
[2023-06-25] MEDS: HydrOXYzine PAMOATE 25 MG CAPSULE PO SCH (09:21)
[2023-06-25] MEDS ORDERED: PANT-31 PO (11:22)
[2023-06-25] MEDS ORDERED: PRED-554 PO (11:27)
[2023-06-25] MEDS ORDERED: RIVA10TA PO (11:32)
[2023-06-25] MEDS ORDERED: ACET-2247 PO (11:34)
[2023-06-25 15:00] VITALS: BP 137/70; PULSE 71; RESP 18; TEMP 98.7
[2023-06-25] MEDS: DiphenhydrAMINE HCL 25 MG CAPSULE PO PRN (16:06)
[2023-06-25] MEDS: RIVAROXABAN 10 MG TABLET PO SCH (17:42)
== END 2023-06-25 19:05 | DRG 690 ==
LOC: EMS 19:36 → 6S 06-21 04:25
PROVIDERS: ADMIT Internal Medicine; ATTEND Internal Medicine
DX: N39.0 Urinary tract infection, site not specified (principal); F11.20 Opioid dependence, uncomplicated; J98.11 Atelectasis; I69.354 Hemiplegia and hemiparesis following cerebral infarction affecting left non-dominant side; B37.89 Other sites of candidiasis; R10.30 Lower abdominal pain, unspecified; E78.5 Hyperlipidemia, unspecified; L40.50 Arthropathic psoriasis, unspecified; K76.0 Fatty (change of) liver, not elsewhere classified; F32.A Depression, unspecified; Z79.899 Other long term (current) drug therapy; Z88.8 Allergy status to other drugs, medicaments and biological substances; Z79.01 Long term (current) use of anticoagulants; Z86.718 Personal history of other venous thrombosis and embolism; L30.8 Other specified dermatitis; Z98.84 Bariatric surgery status; Z76.5 Malingerer [conscious simulation]; Z90.710 Acquired absence of both cervix and uterus; Z86.711 Personal history of pulmonary embolism
CPT/HCPCS: 71045; 74176; 76856; 80048; 80053; 81001; 83605; 83690; 84484; 85025; 85610; 93005; 93970; 99285; J1170; J1200; J1644; J2270; 36415-L1; 36415-TC

== ENCOUNTER 2023-07-07 20:38 | Inpatient (IN) | payer OTHER ==
[~2023-07-07] VITALS: Ht 160 cm; Wt 77.0 kg
[~2023-07-07 20:38] MED LIST changes: +ACET-2247 PO; -CLOP75TA60 PO; +PANT-31 PO; +PRED-554 PO; +RIVA10TA PO
[2023-07-07 22:08] LABS: BASOPHILS % (AUTO) 0.9 % (0.0-2.0); EOSINOPHILS % (AUTO) 4.1 % (1.0-6.0); HEMATOCRIT 34.1 % (36-46); HEMOGLOBIN 10.6 g/dL (12.0-16.0); LYMPHOCYTES # (AUTO) 2.3 K/uL (1.0-4.8); LYMPHOCYTES % (AUTO) 35.6 % (22.0-44.0); MEAN CORPUSCULAR HEMOGLOBIN 23.2 pg (26.0-34.0); MEAN CORPUSCULAR HGB CONC 31.1 G/dL (31.0-37.0); MEAN CORPUSCULAR VOLUME 75 fL (80-100); MONOCYTES # (AUTO) 0.7 K/uL (0.1-1.0); MONOCYTES % (AUTO) 10.3 % (2.0-9.0); NEUTROPHILS # (AUTO) 3.2 K/uL (1.8-7.7); NEUTROPHILS % (AUTO) 49.1 % (40.0-70.0); PLATELET COUNT (AUTO) 267 K/uL (150-450); RED BLOOD CELL COUNT(AUTO) 4.57 MIL/uL (4.00-5.20); RED CELL DISTRIBUTION WIDTH 17.9 % (11.5-14.5); WHITE BLOOD COUNT (AUTO) 6.5 K/uL (4.5-11.0)
[2023-07-07 22:14] LABS: ANION GAP 17 mmol/L (8-16); CALCIUM, TOTAL 8.5 mg/dL (8.8-10.5); CARBON DIOXIDE 25 mmol/L (22-29); CHLORIDE 101 mmol/L (98-107); CREATININE 0.63 mg/dL (0.60-1.30); GLOMERULAR FILTR. RATE CALC > 60 mL/min (>60); GLUCOSE,RANDOM 119 mg/dL (70-110); POTASSIUM 4.1 mmol/L (3.5-5.1); SODIUM SERUM 143 mmol/L (136-145); UREA NITROGEN, BLOOD 26 mg/dL (7-18)
[2023-07-07 22:19] LABS: ALANINE AMINOTRANSFERASE 21 U/L (12-78); ALBUMIN 2.9 g/dL (3.4-5.0); ALKALINE PHOSPHATASE 76 U/L (46-116); ASPARTATE AMINOTRANSFERASE 15 U/L (15-37); BILIRUBIN,TOTAL 0.1 mg/dL (0.1-1.0); LIPASE 42 U/L (16-77); TOTAL PROTEIN, SERUM 6.8 g/dL (6.4-8.2)
[2023-07-07 22:28] LABS: RBC MORPHOLOGY COMMENT ABNORMAL RBC MORPH
[2023-07-07] MEDS ORDERED: IOHEXOL 350 MG/ML 100 ML VIAL ONE (22:51)
[2023-07-07] MEDS ORDERED: SODIUM CHLORIDE 0.9% 100 ML ONE (22:51)
[2023-07-07 23:15] LABS: TROPONIN I-HIGH SENSITIVITY 4 ng/L (<51)
[2023-07-07] MEDS ORDERED: IOHEXOL 9 MG/ML 500 ML BOTTLE PO ONE (23:15)
[2023-07-07] MEDS ORDERED: DiphenhydrAMINE HCL 50 MG/ML VIAL IVP ONE (23:15)
[2023-07-07] MEDS ORDERED: ZOLPIDEM TARTRATE 5 MG TABLET PO PRN (23:45)
[2023-07-07] MEDS ORDERED: MAGNESIUM HYDROXIDE SUSPENSION 30 ML UDCUP PO PRN (23:45)
[2023-07-08 01:00] VITALS: BP 123/57; PULSE 69; RESP 18; TEMP 99
[2023-07-08] MEDS: HEPARIN SODIUM,PORCINE 5,000 UNITS/ML VIAL SQ SCH ×4 (01:00→23:22)
[2023-07-08 02:56] LABS: APPEARANCE,URINE CLEAR (CLEAR); BILIRUBIN,URINE NEGATIVE (NEGATIVE); COLOR,URINE LIGHT YELLOW (YELLOW); GLUCOSE, URINE (UA) NEGATIVE (NEGATIVE); KETONES,URINE NEGATIVE (NEGATIVE); LEUKOCYTE ESTERASE ,URINE LARGE (NEGATIVE); NITRATE,URINE NEGATIVE (NEGATIVE); OCCULT BLOOD,URINE NEGATIVE (NEGATIVE); PH,URINE 6.5 (5.0-8.0); PROTEIN,URINE NEGATIVE (NEGATIVE); SPECIFIC GRAVITIY, URINE 1.037 (1.003-1.030); UROBILINOGEN,URINE <=1.0 mg/dL (<=1.0)
[2023-07-08 03:10] LABS: BACTERIA,URINE Few /HPF (None Seen); RBC,URINE None Seen /HPF (0-2); SQUAMOUS EPITHELIAL CELL,UR Rare /LPF (None Seen)
[2023-07-08] MEDS ORDERED: HYDROmorphone HCL 2 MG/ML SYRINGE IVP PRN (03:30)
[2023-07-08] MEDS ORDERED: PROMETHAZINE HCL 12.5 MG RECTAL SUPPOSITORY PR PRN (04:15)
[2023-07-08 05:02] VITALS: BP 109/58; PULSE 63; RESP 18; TEMP 98.7
[2023-07-08] MEDS: ASPIRIN 81 MG CHEWABLE TABLET PO SCH (08:15)
[2023-07-08] MEDS: FAMOTIDINE 20 MG TABLET PO SCH ×2 (08:15→21:30)
[2023-07-08] MEDS: ACETAMINOPHEN 325 MG TABLET PO PRN ×2 (08:15→16:50)
[2023-07-08] MEDS: ATORVASTATIN CALCIUM 20 MG TABLET PO SCH (08:15)
[2023-07-08 08:41] VITALS: BP 100/58; PULSE 58; RESP 19; TEMP 97.8
[2023-07-08] MEDS ORDERED: SODIUM CHLORIDE 0.9% 250 ML IV ONE (09:57)
[2023-07-08] MEDS: CefTRIAXone 1 GM/DEXTROSE 50 ML IV SCH (10:09)
[2023-07-08] MEDS: HYDROCORTISONE 0.5% 30 GM CREAM TP SCH ×2 (10:09→21:33)
[2023-07-08] MEDS ORDERED: DENTURE ADHESIVE 68 GM CREAM DT PRN (18:45)
[2023-07-08 20:24] VITALS: BP 104/59; PULSE 79; RESP 18; TEMP 98.8
[2023-07-09 05:09] VITALS: BP 99/55; PULSE 62; RESP 18; TEMP 97.5
[2023-07-09] MEDS: ATORVASTATIN CALCIUM 20 MG TABLET PO SCH (08:28)
[2023-07-09] MEDS: FAMOTIDINE 20 MG TABLET PO SCH (08:28)
[2023-07-09] MEDS: HEPARIN SODIUM,PORCINE 5,000 UNITS/ML VIAL SQ SCH (08:28)
[2023-07-09] MEDS: ASPIRIN 81 MG CHEWABLE TABLET PO SCH (08:28)
[2023-07-09] MEDS: HYDROCORTISONE 0.5% 30 GM CREAM TP SCH (08:31)
[2023-07-09] MEDS: CefTRIAXone 1 GM/DEXTROSE 50 ML IV SCH (09:12)
[2023-07-09 09:16] VITALS: BP 108/62; PULSE 70; RESP 18; TEMP 98.3
[2023-07-09] MEDS ORDERED: MAGN-169 PO (10:55)
== END 2023-07-09 19:31 | DRG 690 ==
LOC: EMS 20:42 → 6S 07-08 00:01
PROVIDERS: ADMIT Internal Medicine; ATTEND Internal Medicine
DX: N39.0 Urinary tract infection, site not specified (principal); E66.9 Obesity, unspecified; L40.9 Psoriasis, unspecified; F32.A Depression, unspecified; Z95.828 Presence of other vascular implants and grafts; Z86.73 Personal history of transient ischemic attack (TIA), and cerebral infarction without residual deficits; Z86.718 Personal history of other venous thrombosis and embolism; Z98.84 Bariatric surgery status; Z68.30 Body mass index [BMI] 30.0-30.9, adult; Z88.8 Allergy status to other drugs, medicaments and biological substances; Z79.899 Other long term (current) drug therapy; Z86.711 Personal history of pulmonary embolism
CPT/HCPCS: 71045; 74177; 80053; 81001; 82550; 83690; 84484; 85025; 87086; 87186; 93005; 99285; J0696; J1170; J1200; J1644; J7050; Q9967; 36415-L1; 36415-TC

== ENCOUNTER 2023-07-23 19:23 | Inpatient (IN) | payer OTHER ==
[~2023-07-23] VITALS: Ht 167.6 cm; Wt 93.4 kg
[~2023-07-23 19:23] MED LIST changes: -HYDR-4808 PO; +MAGN-169 PO; -MIRT-89 PO; -PRED-554 PO
[2023-07-23 20:25] LABS: BAND NEUTROPHILS % (MANUAL) 0 % (0-5)
[2023-07-23 20:31] LABS: HEMATOCRIT 37.2 % (36-46); HEMOGLOBIN 11.6 g/dL (12.0-16.0); MEAN CORPUSCULAR HEMOGLOBIN 23.2 pg (26.0-34.0); MEAN CORPUSCULAR HGB CONC 31.1 G/dL (31.0-37.0); MEAN CORPUSCULAR VOLUME 74 fL (80-100); PLATELET COUNT (AUTO) 296 K/uL (150-450); RED CELL DISTRIBUTION WIDTH 18.7 % (11.5-14.5); WHITE BLOOD COUNT (AUTO) 9.9 K/uL (4.5-11.0)
[2023-07-23 20:45] LABS: ANION GAP 10 mmol/L (8-16); CALCIUM, TOTAL 8.9 mg/dL (8.8-10.5); CARBON DIOXIDE 24 mmol/L (22-29); CHLORIDE 105 mmol/L (98-107); CREATININE 0.74 mg/dL (0.60-1.30); GLOMERULAR FILTR. RATE CALC > 60 mL/min (>60); GLUCOSE,RANDOM 119 mg/dL (70-110); POTASSIUM 4.7 mmol/L (3.5-5.1); SODIUM SERUM 139 mmol/L (136-145); UREA NITROGEN, BLOOD 26 mg/dL (7-18)
[2023-07-23 21:01] LABS: B-TYPE NATRIURETIC PEPTIDE < 5 pg/mL (0-100); TROPONIN I-HIGH SENSITIVITY Less Than 4 ng/L (<51)
[2023-07-23 21:24] LABS: LYMPHOCYTES % (MANUAL) 10 % (22-44); MONOCYTES % (MANUAL) 3 % (2-9); RBC MORPHOLOGY COMMENT NORMAL RBC MORPH; SEGMENTED NEUTROPHILS % 87 % (40-70); TOTAL CELLS COUNTED 100
[2023-07-23] MEDS ORDERED: ZOLPIDEM TARTRATE 5 MG TABLET PO PRN (21:45)
[2023-07-23] MEDS ORDERED: MAGNESIUM HYDROXIDE SUSPENSION 30 ML UDCUP PO PRN (21:45)
[2023-07-23] MEDS ORDERED: ACETAMINOPHEN 325 MG TABLET PO PRN (21:45)
[2023-07-23] MEDS ORDERED: DiphenhydrAMINE HCL 50 MG/ML VIAL IVP ONE (22:00)
[2023-07-23 22:30] LABS: COVID AG,FIA SOURCE NASAL SWAB
[2023-07-23 23:14] LABS: SARS-COV2 (COVID) ANTIGEN,FIA Negative (Negative)
[2023-07-23 23:31] LABS: APPEARANCE,URINE CLEAR (CLEAR); BILIRUBIN,URINE NEGATIVE (NEGATIVE); COLOR,URINE LIGHT YELLOW (YELLOW); GLUCOSE, URINE (UA) NEGATIVE (NEGATIVE); KETONES,URINE NEGATIVE (NEGATIVE); LEUKOCYTE ESTERASE ,URINE SMALL (NEGATIVE); NITRATE,URINE NEGATIVE (NEGATIVE); OCCULT BLOOD,URINE NEGATIVE (NEGATIVE); PH,URINE 7.5 (5.0-8.0); PROTEIN,URINE NEGATIVE (NEGATIVE); SPECIFIC GRAVITIY, URINE 1.025 (1.003-1.030); UROBILINOGEN,URINE <=1.0 mg/dL (<=1.0)
[2023-07-23 23:42] LABS: BACTERIA,URINE Few /HPF (None Seen); RBC,URINE None Seen /HPF (0-2); SQUAMOUS EPITHELIAL CELL,UR Few /LPF (None Seen)
[2023-07-24 00:43] VITALS: BP 132/72; PULSE 74; RESP 20; TEMP 97.8
[2023-07-24] MEDS: HEPARIN SODIUM,PORCINE 5,000 UNITS/ML VIAL SQ SCH ×2 (00:44→08:25)
[2023-07-24] MEDS ORDERED: DiphenhydrAMINE HCL 25 MG CAPSULE PO ONE (02:00)
[2023-07-24 05:22] VITALS: BP 105/57; PULSE 62; RESP 17; TEMP 97.8
[2023-07-24 07:18] LABS: TROPONIN I-HIGH SENSITIVITY Less Than 4 ng/L (<51)
[2023-07-24 08:30] VITALS: BP 96/61; PULSE 69; RESP 18; TEMP 97.8
[2023-07-24] MEDS ORDERED: ASPIRIN 81 MG CHEWABLE TABLET PO SCH (09:00)
[2023-07-24] MEDS ORDERED: FAMOTIDINE 20 MG TABLET PO SCH (09:00)
[2023-07-24] MEDS ORDERED: ATORVASTATIN CALCIUM 20 MG TABLET PO SCH (09:00)
[2023-07-24] MEDS ORDERED: HydrOXYzine HCL 10 MG TABLET PO ONE (10:45)
[2023-07-24] MEDS ORDERED: ASPI81TA39 PO (10:54)
[2023-07-24] MEDS ORDERED: FAMO20 PO (10:54)
== END 2023-07-24 12:05 | DRG 882 ==
LOC: EMS 19:25 → 5S 23:21
PROVIDERS: ADMIT Internal Medicine; ATTEND Internal Medicine
DX: F45.41 Pain disorder exclusively related to psychological factors (principal); R07.89 Other chest pain; F41.1 Generalized anxiety disorder; E66.9 Obesity, unspecified; L40.9 Psoriasis, unspecified; Z20.822 Contact with and (suspected) exposure to COVID-19; F32.A Depression, unspecified; Z88.8 Allergy status to other drugs, medicaments and biological substances; Z79.899 Other long term (current) drug therapy; Z86.73 Personal history of transient ischemic attack (TIA), and cerebral infarction without residual deficits; Z98.84 Bariatric surgery status; Z68.33 Body mass index [BMI] 33.0-33.9, adult
CPT/HCPCS: 71045; 80048; 81001; 83880; 84484; 85007; 85027; 87086; 87186; 93005; 99285; J1200; J1644; 36415-L1; 36415-TC

== ENCOUNTER 2023-09-03 15:29 | Inpatient (IN) | payer OTHER ==
[~2023-09-03] VITALS: Ht 160 cm; Wt 101.7 kg
[~2023-09-03 15:29] MED LIST changes: +ASPI81TA39 PO; +FAMO20 PO; -PANT-31 PO; -RIVA10TA PO
[2023-09-03 16:52] LABS: BASOPHILS % (AUTO) 1.1 % (0.0-2.0); EOSINOPHILS % (AUTO) 2.4 % (1.0-6.0); HEMATOCRIT 37.9 % (36-46); HEMOGLOBIN 12.1 g/dL (12.0-16.0); LYMPHOCYTES # (AUTO) 2.3 K/uL (1.0-4.8); LYMPHOCYTES % (AUTO) 30.3 % (22.0-44.0); MEAN CORPUSCULAR HEMOGLOBIN 23.4 pg (26.0-34.0); MEAN CORPUSCULAR HGB CONC 31.9 G/dL (31.0-37.0); MEAN CORPUSCULAR VOLUME 73 fL (80-100); MONOCYTES # (AUTO) 0.4 K/uL (0.1-1.0); MONOCYTES % (AUTO) 5.8 % (2.0-9.0); NEUTROPHILS # (AUTO) 4.7 K/uL (1.8-7.7); NEUTROPHILS % (AUTO) 60.4 % (40.0-70.0); PLATELET COUNT (AUTO) 261 K/uL (150-450); RED BLOOD CELL COUNT(AUTO) 5.17 MIL/uL (4.00-5.20); RED CELL DISTRIBUTION WIDTH 20.2 % (11.5-14.5); WHITE BLOOD COUNT (AUTO) 7.7 K/uL (4.5-11.0)
[2023-09-03] MEDS ORDERED: DiphenhydrAMINE HCL 50 MG/ML VIAL IVP ONE ×2 (17:00→21:30)
[2023-09-03 17:03] LABS: ANION GAP 8 mmol/L (8-16); CALCIUM, TOTAL 8.8 mg/dL (8.8-10.5); CARBON DIOXIDE 26 mmol/L (22-29); CHLORIDE 104 mmol/L (98-107); CREATININE 0.83 mg/dL (0.60-1.30); GLOMERULAR FILTR. RATE CALC > 60 mL/min (>60); GLUCOSE,RANDOM 102 mg/dL (70-110); POTASSIUM 4.1 mmol/L (3.5-5.1); SODIUM SERUM 138 mmol/L (136-145); UREA NITROGEN, BLOOD 21 mg/dL (7-18)
[2023-09-03 17:06] LABS: PROTHROMBIN TIME 10.4 SEC (9.4-11.6)
[2023-09-03 17:10] LABS: TROPONIN I-HIGH SENSITIVITY Less Than 4 ng/L (<51)
[2023-09-03 17:14] LABS: B-TYPE NATRIURETIC PEPTIDE < 5 pg/mL (0-100)
[2023-09-03 17:29] LABS: ALANINE AMINOTRANSFERASE 27 U/L (12-78); ALBUMIN 3.2 g/dL (3.4-5.0); ALKALINE PHOSPHATASE 76 U/L (46-116); ASPARTATE AMINOTRANSFERASE 20 U/L (15-37); BILIRUBIN,TOTAL 0.3 mg/dL (0.1-1.0); CREATINE KINASE, TOTAL ONLY 137 U/L (26-192)
[2023-09-03 17:35] LABS: RBC MORPHOLOGY COMMENT ABNORMAL RBC MORPH
[2023-09-03] MEDS ORDERED: LORazepam 1 MG TABLET PO ONE (19:00)
[2023-09-03 20:57] LABS: APPEARANCE,URINE CLEAR (CLEAR); BILIRUBIN,URINE NEGATIVE (NEGATIVE); COLOR,URINE LIGHT YELLOW (YELLOW); GLUCOSE, URINE (UA) NEGATIVE (NEGATIVE); KETONES,URINE NEGATIVE (NEGATIVE); LEUKOCYTE ESTERASE ,URINE MODERATE (NEGATIVE); NITRATE,URINE NEGATIVE (NEGATIVE); OCCULT BLOOD,URINE NEGATIVE (NEGATIVE); PH,URINE 5.5 (5.0-8.0); PROTEIN,URINE NEGATIVE (NEGATIVE); SPECIFIC GRAVITIY, URINE 1.016 (1.003-1.030); UROBILINOGEN,URINE <=1.0 mg/dL (<=1.0)
[2023-09-03 21:08] LABS: RBC,URINE None Seen /HPF (0-2)
[2023-09-03 21:09] LABS: BACTERIA,URINE Rare /HPF (None Seen); SQUAMOUS EPITHELIAL CELL,UR Few /LPF (None Seen)
[2023-09-03] MEDS ORDERED: ACETAMINOPHEN 325 MG TABLET PO PRN (21:45)
[2023-09-03 22:03] LABS: COVID AG,FIA SOURCE NASAL SWAB
[2023-09-03 22:22] LABS: SARS-COV2 (COVID) ANTIGEN,FIA Negative (Negative)
[2023-09-03 22:22] LABS: TROPONIN I-HIGH SENSITIVITY Less Than 4 ng/L (<51)
[2023-09-04] MEDS: HEPARIN SODIUM,PORCINE 5,000 UNITS/ML VIAL SQ SCH ×3 (00:02→16:02)
[2023-09-04 04:00] VITALS: BP 101/58; PULSE 69; RESP 17; TEMP 98.1
[2023-09-04 07:00] LABS: BASOPHILS % (AUTO) 0.9 % (0.0-2.0); EOSINOPHILS % (AUTO) 3.2 % (1.0-6.0); HEMATOCRIT 35.9 % (36-46); HEMOGLOBIN 11.6 g/dL (12.0-16.0); LYMPHOCYTES # (AUTO) 2.1 K/uL (1.0-4.8); LYMPHOCYTES % (AUTO) 30.6 % (22.0-44.0); MEAN CORPUSCULAR HEMOGLOBIN 23.6 pg (26.0-34.0); MEAN CORPUSCULAR HGB CONC 32.2 G/dL (31.0-37.0); MEAN CORPUSCULAR VOLUME 74 fL (80-100); MONOCYTES # (AUTO) 0.4 K/uL (0.1-1.0); MONOCYTES % (AUTO) 6.3 % (2.0-9.0); PLATELET COUNT (AUTO) 242 K/uL (150-450); RED BLOOD CELL COUNT(AUTO) 4.89 MIL/uL (4.00-5.20); RED CELL DISTRIBUTION WIDTH 19.6 % (11.5-14.5); WHITE BLOOD COUNT (AUTO) 6.8 K/uL (4.5-11.0)
[2023-09-04 07:04] LABS: ANION GAP 9 mmol/L (8-16); CALCIUM, TOTAL 8.3 mg/dL (8.8-10.5); CARBON DIOXIDE 26 mmol/L (22-29); CHLORIDE 104 mmol/L (98-107); GLOMERULAR FILTR. RATE CALC > 60 mL/min (>60); GLUCOSE,RANDOM 107 mg/dL (70-110); POTASSIUM 3.7 mmol/L (3.5-5.1); SODIUM SERUM 139 mmol/L (136-145); UREA NITROGEN, BLOOD 22 mg/dL (7-18)
[2023-09-04 07:21] LABS: TROPONIN I-HIGH SENSITIVITY Less Than 4 ng/L (<51)
[2023-09-04 08:04] VITALS: BP 113/60; PULSE 67; RESP 19; TEMP 98.5
[2023-09-04] MEDS: DOCUSATE SODIUM 100 MG CAPSULE PO SCH ×2 (09:00→21:00)
[2023-09-04] MEDS: ASPIRIN 81 MG CHEWABLE TABLET PO SCH (09:08)
[2023-09-04] MEDS: ATORVASTATIN CALCIUM 40 MG TABLET PO SCH (09:09)
[2023-09-04 11:46] VITALS: BP 101/52; PULSE 70; RESP 16; TEMP 98.3
[2023-09-04] MEDS ORDERED: DENTURE ADHESIVE 68 GM CREAM DT PRN (13:00)
[2023-09-04] MEDS: DiphenhydrAMINE HCL 25 MG CAPSULE PO PRN (13:56)
[2023-09-04 15:39] VITALS: BP 100/67; PULSE 82; RESP 18; TEMP 98
[2023-09-04 19:27] VITALS: BP 120/60; PULSE 82; RESP 19; TEMP 98.2
[2023-09-04] MEDS ORDERED: MELATONIN 3 MG TABLET PO PRN (22:30)
[2023-09-05] MEDS: HEPARIN SODIUM,PORCINE 5,000 UNITS/ML VIAL SQ SCH ×3 (00:32→16:14)
[2023-09-05 08:29] VITALS: BP 112/51; PULSE 92; RESP 19; TEMP 98.2
[2023-09-05] MEDS: DOCUSATE SODIUM 100 MG CAPSULE PO SCH ×2 (09:00→20:23)
[2023-09-05] MEDS: ATORVASTATIN CALCIUM 40 MG TABLET PO SCH (09:05)
[2023-09-05] MEDS: ASPIRIN 81 MG CHEWABLE TABLET PO SCH (09:05)
[2023-09-05] MEDS: DiphenhydrAMINE HCL 25 MG CAPSULE PO PRN (09:11)
[2023-09-05] MEDS: HYDROCORTISONE 1% 30 GM OINTMENT TP SCH ×2 (13:16→20:23)
[2023-09-05 14:17] VITALS: BP 109/61; PULSE 93; RESP 18; TEMP 98.1
[2023-09-05] MEDS ORDERED: BUSP10TA23 PO (15:55)
[2023-09-05] MEDS ORDERED: HYDR30OI13 TP (15:57)
[2023-09-05] MEDS ORDERED: MIRT-149 PO (15:58)
[2023-09-05 16:15] VITALS: BP 101/52; PULSE 83; RESP 19; TEMP 99
[2023-09-05 20:25] VITALS: BP 112/61; PULSE 83; RESP 20; TEMP 98.3
[2023-09-05] MEDS ORDERED: MIRTAZAPINE 30 MG TABLET PO SCH (21:00)
[2023-09-06] MEDS: HEPARIN SODIUM,PORCINE 5,000 UNITS/ML VIAL SQ SCH ×2 (00:18→08:24)
[2023-09-06 00:23] VITALS: BP 98/58; PULSE 70; RESP 20; TEMP 98.3
[2023-09-06 05:15] VITALS: BP 105/38; PULSE 67; RESP 20; TEMP 98.2
[2023-09-06] MEDS: ASPIRIN 81 MG CHEWABLE TABLET PO SCH (08:25)
[2023-09-06] MEDS: ATORVASTATIN CALCIUM 40 MG TABLET PO SCH (08:25)
[2023-09-06] MEDS: DOCUSATE SODIUM 100 MG CAPSULE PO SCH (08:26)
[2023-09-06] MEDS: HYDROCORTISONE 1% 30 GM OINTMENT TP SCH (08:26)
[2023-09-06] MEDS ORDERED: BusPIRone HCL 10 MG TABLET PO SCH (09:00)
== END 2023-09-06 13:00 | DRG 392 ==
LOC: EMS 15:30 → 5S 23:45
PROVIDERS: ADMIT Internal Medicine; ATTEND Internal Medicine
DX: K21.9 Gastro-esophageal reflux disease without esophagitis (principal); I25.10 Atherosclerotic heart disease of native coronary artery without angina pectoris; E66.9 Obesity, unspecified; Z68.39 Body mass index [BMI] 39.0-39.9, adult; E78.00 Pure hypercholesterolemia, unspecified; L30.9 Dermatitis, unspecified; F32.A Depression, unspecified; F41.9 Anxiety disorder, unspecified; Z20.822 Contact with and (suspected) exposure to COVID-19; I10 Essential (primary) hypertension; Z86.73 Personal history of transient ischemic attack (TIA), and cerebral infarction without residual deficits; Z79.899 Other long term (current) drug therapy; Z86.718 Personal history of other venous thrombosis and embolism; Z98.84 Bariatric surgery status; Z88.8 Allergy status to other drugs, medicaments and biological substances; Z79.82 Long term (current) use of aspirin; Z86.711 Personal history of pulmonary embolism
CPT/HCPCS: 71045; 80048; 80053; 81001; 82550; 83735; 83880; 84484; 85025; 85379; 85610; 85730; 93005; 93306; 93970; 99291; G0378; J1200; J1644; 36415-L1; 36415-TC

== ENCOUNTER 2024-05-19 11:12 | Emergency (ER) | payer OTHER ==
[~2024-05-19] VITALS: Ht 160 cm; Wt 96.4 kg
[~2024-05-19 11:12] MED LIST changes: -ACET-2247 PO; -ASPI81TA39 PO; +BUSP15 PO; -FAMO20 PO; +LISI2.5T91 PO; -MAGN-169 PO; +PRED-554 PO; +TRAZ-257 PO
[2024-05-19 11:13] VITALS: TEMP 98.3
[2024-05-19 11:45] LABS: BASOPHILS % (AUTO) 0.7 % (0.0-2.0); EOSINOPHILS % (AUTO) 2.1 % (1.0-6.0); HEMATOCRIT 43.3 % (36-46); HEMOGLOBIN 14.1 g/dL (12.0-16.0); LYMPHOCYTES # (AUTO) 2.5 K/uL (1.0-4.8); LYMPHOCYTES % (AUTO) 36.1 % (22.0-44.0); MEAN CORPUSCULAR HEMOGLOBIN 27.4 pg (26.0-34.0); MEAN CORPUSCULAR HGB CONC 32.5 G/dL (31.0-37.0); MEAN CORPUSCULAR VOLUME 84 fL (80-100); MONOCYTES # (AUTO) 0.2 K/uL (0.1-1.0); MONOCYTES % (AUTO) 3.2 % (2.0-9.0); NEUTROPHILS # (AUTO) 4.1 K/uL (1.8-7.7); NEUTROPHILS % (AUTO) 57.9 % (40.0-70.0); PLATELET COUNT (AUTO) 247 K/uL (150-450); RED BLOOD CELL COUNT(AUTO) 5.13 MIL/uL (4.00-5.20); RED CELL DISTRIBUTION WIDTH 15.2 % (11.5-14.5)
[2024-05-19 11:53] LABS: CALCIUM, TOTAL 8.7 mg/dL (8.8-10.5); CREATININE 1.08 mg/dL (0.60-1.30); POTASSIUM 3.7 mmol/L (3.5-5.1)
[2024-05-19 12:06] LABS: TROPONIN I-HIGH SENSITIVITY Less Than 4 ng/L (<51)
[2024-05-19] MEDS: TraMADol HCL 50 MG TABLET PO ONE (12:57)
[2024-05-19] MEDS: DiphenhydrAMINE HCL 50 MG/ML VIAL IVP ONE ×2 (13:06→14:28)
[2024-05-19] MEDS: MORPHINE SULFATE 2 MG/ML SYRINGE IVP ONE (13:48)
[2024-05-19 14:30] LABS: COVID AG,FIA SOURCE NASAL SWAB
[2024-05-19 14:57] LABS: SARS-COV2 (COVID) ANTIGEN,FIA Negative (Negative)
[2024-05-19 14:59] LABS: TROPONIN I-HIGH SENSITIVITY Less Than 4 ng/L (<51)
[2024-05-19 15:13] VITALS: BP 124/66; PULSE 69; RESP 16
[2024-05-19] MEDS ORDERED: PRED-554 PO (15:28)
[2024-05-19] MEDS ORDERED: TRAM50TA5 PO (15:28)
== END 2024-05-19 16:06 | disposition home or self-care (01) ==
LOC: EMS 11:13
DX: R07.89 Other chest pain (principal); R06.02 Shortness of breath; Z88.6 Allergy status to analgesic agent; Z88.8 Allergy status to other drugs, medicaments and biological substances; I11.0 Hypertensive heart disease with heart failure; I50.9 Heart failure, unspecified; Z20.822 Contact with and (suspected) exposure to COVID-19
CPT/HCPCS: 99285; 96374; 71045; 96375; 87426; 80048; 83880; 84484; 85025; 36415; 93005; 96376; J1200; J2270

== ENCOUNTER 2024-07-06 12:41 | Emergency (ER) | payer MEDICAID, OTHER ==
[~2024-07-06] VITALS: Ht 162.6 cm; Wt 96.4 kg
[~2024-07-06 12:41] MED LIST changes: +ACET-2247 PO; +ALPR-709 PO; +APIX5TAB PO; -ATOR20TA PO; +ATOR40TA28 PO; -BUSP15 PO; +DOCU-385 PO; +FAMO20 PO; -LISI2.5T91 PO; -PRED-554 PO
[2024-07-06] MEDS ORDERED: LISI-892 PO (12:47)
[2024-07-06] MEDS: DiphenhydrAMINE HCL 50 MG/ML VIAL IM ONE (16:17)
[2024-07-06] MEDS: MORPHINE SULFATE 4 MG/ML SYRINGE IM ONE (16:18)
[2024-07-06 17:58] LABS: BASOPHILS % (AUTO) 1.3 % (0.0-2.0); EOSINOPHILS % (AUTO) 2.9 % (1.0-6.0); HEMATOCRIT 42.4 % (36-46); HEMOGLOBIN 13.8 g/dL (12.0-16.0); LYMPHOCYTES # (AUTO) 2.3 K/uL (1.0-4.8); LYMPHOCYTES % (AUTO) 30.9 % (22.0-44.0); MEAN CORPUSCULAR HEMOGLOBIN 28.3 pg (26.0-34.0); MEAN CORPUSCULAR HGB CONC 32.7 G/dL (31.0-37.0); MEAN CORPUSCULAR VOLUME 87 fL (80-100); MONOCYTES # (AUTO) 0.4 K/uL (0.1-1.0); MONOCYTES % (AUTO) 5.8 % (2.0-9.0); NEUTROPHILS # (AUTO) 4.3 K/uL (1.8-7.7); NEUTROPHILS % (AUTO) 59.1 % (40.0-70.0); PLATELET COUNT (AUTO) 206 K/uL (150-450); RED BLOOD CELL COUNT(AUTO) 4.89 MIL/uL (4.00-5.20); RED CELL DISTRIBUTION WIDTH 16.3 % (11.5-14.5); WHITE BLOOD COUNT (AUTO) 7.3 K/uL (4.5-11.0)
[2024-07-06 18:11] LABS: ANION GAP 12 mmol/L (8-16); CALCIUM, TOTAL 8.5 mg/dL (8.8-10.5); CARBON DIOXIDE 24 mmol/L (22-29); CHLORIDE 103 mmol/L (98-107); CREATININE 0.79 mg/dL (0.60-1.30); GLOMERULAR FILTR. RATE CALC > 60 mL/min (>60); GLUCOSE,RANDOM 95 mg/dL (70-110); POTASSIUM 3.8 mmol/L (3.5-5.1); SODIUM SERUM 139 mmol/L (136-145); UREA NITROGEN, BLOOD 21 mg/dL (7-18)
[2024-07-06 18:17] LABS: ALANINE AMINOTRANSFERASE 104 U/L (12-78); ALBUMIN 3.3 g/dL (3.4-5.0); ALKALINE PHOSPHATASE 68 U/L (46-116); ASPARTATE AMINOTRANSFERASE 70 U/L (15-37); BILIRUBIN,TOTAL 0.6 mg/dL (0.1-1.0); TOTAL PROTEIN, SERUM 7.2 g/dL (6.4-8.2)
[2024-07-06 18:20] LABS: TROPONIN I-HIGH SENSITIVITY 4 ng/L (<51)
[2024-07-06 21:07] VITALS: BP 139/78; PULSE 89; RESP 16; TEMP 97.3; O2SAT 98
[2024-07-06] MEDS: DiphenhydrAMINE HCL 25 MG CAPSULE PO ONE (21:11)
== END 2024-07-06 21:33 | disposition home or self-care (01) ==
LOC: EMS 12:41
DX: M25.511 Pain in right shoulder (principal); F41.9 Anxiety disorder, unspecified; K76.0 Fatty (change of) liver, not elsewhere classified; I11.0 Hypertensive heart disease with heart failure; I50.9 Heart failure, unspecified; Z88.5 Allergy status to narcotic agent; Z88.6 Allergy status to analgesic agent; Z88.8 Allergy status to other drugs, medicaments and biological substances
CPT/HCPCS: 99285; 93880; 93971; 76705; 71045; 80053; 84484; 85025; 36415; 73030; 93005; 96372; J1200; J2270